=== PATIENT | male | born 1965 | race Two or more races ===

== ENCOUNTER 2019-11-16 04:56 | Emergency (ER) | payer MEDICAID ==
[~2019-11-16] VITALS: Ht 175.3 cm; Wt 108.9 kg
[2019-11-16 06:10] LABS: Basophils # (auto) 0 uL; Basophils % (auto) 0.3 % (0.0-2.0); Eosinophils # (auto) 0 uL; Eosinophils % (auto) 0.2 % (0.0-7.0); Hematocrit 47.9 % (41.0-53.0); Hemoglobin 15.9 g/dL (13.5-17.5); Lymphocytes # (auto) 0.7 uL; Lymphocytes % (auto) 5.2 % (10.0-50.0); Mean Corpuscular Hgb Conc. 33.2 g/dL (32.0-36.0); Mean Corpuscular Volume 84.3 fL (80.0-100.0); Monocytes # (auto) 0.4 uL; Monocytes % (auto) 2.8 % (0.0-12.0); Neutrophils # (auto) 12.6 uL; Neutrophils % (auto) 91.5 % (37.0-80.0); Platelet Count (auto) 215 10^3/uL (140-450); Red Blood Cells 5.68 10^6/uL (4.5-5.90); White Blood Cell 13.8 10^3/uL (4.4-10.8)
[2019-11-16 06:31] LABS: Albumin 3.9 g/dL (3.4-5.0); Anion Gap 14 (5-15); Blood Alcohol < 3.0 mg/dL (0-5); Blood Urea Nitrogen 27 mg/dL (7-18); Calcium 8.9 mg/dL (8.5-10.1); Carbon Dioxide 20 mmol/L (21-32); Chloride 104 mmol/L (98-107); Glucose 111 mg/dL (74-106); Potassium 3.4 mmol/L (3.5-5.1); Sodium 138 mmol/L (136-145)
[2019-11-16 06:33] LABS: Alanine Aminotransferase 34 U/L (16-61); Aspartate Aminotransferase 17 U/L (15-37); BUN/Creatinine Ratio 26.2; GFR African American 96 mL/min; GFR Non-African American 79 mL/min
[2019-11-16 06:37] LABS: Alkaline Phosphatase 93 U/L (45-117); Bilirubin, Total 1.2 mg/dL (0.2-1.0); Creatine Kinase IFCC 77 U/L (39-308); Total Protein 8.5 g/dL (6.4-8.2)
[2019-11-16 11:15] VITALS: BP 114/76
== END 2019-11-16 12:48 | disposition home or self-care (01) ==
LOC: ER 04:56
DX: T68.XXXA Hypothermia, initial encounter (principal); F41.9 Anxiety disorder, unspecified; F32.9 Major depressive disorder, single episode, unspecified; F20.9 Schizophrenia, unspecified; R45.851 Suicidal ideations; R94.31 Abnormal electrocardiogram [ECG] [EKG]
CPT/HCPCS: 36415; 80053; 80320; 82550; 84484; 85025; 93005; 99291

== ENCOUNTER 2019-11-16 23:12 | Emergency (ER) | payer MEDICAID ==
[~2019-11-16] VITALS: Ht 175.3 cm; Wt 108.9 kg
[2019-11-17 07:21] LABS: Urine Bacteria NONE SEEN /hpf (None Seen); Urine Blood Negative /uL (Negative); Urine Mucus MODERATE (None Seen); Urine Specific Gravity 1.038 (1.001-1.035); Urine WBC 4 /hpf (0 - 3)
[2019-11-17 07:36] LABS: Alcohol, Urine < 3.0 mg/dL (0-5); Amphetamine Screen, Urine NEGATIVE (NEGATIVE); Barbiturate Scree,Urine NEGATIVE (NEGATIVE); Benzodiazephine Screen, Urine NEGATIVE (NEGATIVE); Cocaine Screen, Urine NEGATIVE (NEGATIVE); Opiate Scree,Urine POSITIVE (NEGATIVE); Phencyclidine Screen, Urine NEGATIVE (NEGATIVE)
[2019-11-17 07:44] LABS: Cannabinoid Screen, Urine NEGATIVE (NEGATIVE)
[2019-11-17] MEDS: DULoxetine HCL 30 MG CAP PO SCH ×2 (11:30→22:00)
[2019-11-17] MEDS: SERTRALINE HCL 50 MG TAB PO SCH (11:30)
[2019-11-18] MEDS: DULoxetine HCL 30 MG CAP PO SCH ×2 (09:15→09:23)
[2019-11-18] MEDS: SERTRALINE HCL 50 MG TAB PO SCH ×2 (09:24→09:25)
[2019-11-18 09:35] VITALS: BP 143/95
== END 2019-11-18 09:47 | disposition short-term general hospital (02) ==
LOC: EDBD 23:12 → ER 23:14
DX: F20.9 Schizophrenia, unspecified (principal); F19.10 Other psychoactive substance abuse, uncomplicated; Z91.19 Patient's noncompliance with other medical treatment and regimen; R45.851 Suicidal ideations
CPT/HCPCS: 80307; 81001